=== PATIENT | male | born 1985 | race Caucasian/White ===

== ENCOUNTER 2018-06-08 23:11 | Emergency (ER) | payer OTHER ==
[~2018-06-08] VITALS: Ht 182.9 cm; Wt 104.3 kg
[~2018-06-08 23:11] MED LIST: ADDERALL 20 MG20 MG PO
[2018-06-08] MEDS ORDERED: LATUDA (23:26)
[2018-06-08] MEDS ORDERED: DEPAKOTE (23:26)
[2018-06-08 23:58] LABS: ABSOLUTE NEUTROPHILS 6.5 thou/uL (1.4-8.2); BASOPHILS 0.4 % (0.0-2.0); EOSINOPHILS 1.4 % (0.0-3.0); HEMATOCRIT 43.1 % (42.0-52.0); HEMOGLOBIN 14.8 gm/dL (14.0-18.0); LYMPHOCYTES 16.4 % (24.0-44.0); MCH 30.6 pg (26.0-34.0); MCHC 34.3 g/dL (28.0-37.0); MCV 89.2 fL (80.0-100.0); MONOCYTES 7.4 % (1.0-8.0); PLATELET COUNT 203 thou/uL (150-400); POLYS 74.4 % (36.0-66.0); RBC 4.83 mil/uL (4.50-6.00); RDW 13.5 % (10.5-14.5); WBC 8.8 thou/uL (4.0-11.0)
[2018-06-09 00:07] LABS: ANION GAP 11 mmol/L (7-16); BUN 9 mg/dL (7-18); CALCIUM 8.2 mg/dL (8.5-10.1); CHLORIDE 107 mmol/L (98-107); CO2 26 mmol/L (21-32); CREATININE 1.1 mg/dL (0.7-1.3); GLUCOSE 109 mg/dL (74-106); SODIUM 144 mmol/L (136-145)
[2018-06-09 00:12] LABS: ALBUMIN 3.5 g/dL (3.4-5.0); SALICYLATE < 2.8 mg/dL (2.8-20.0); SGOT 23 U/L (15-37); SGPT 32 U/L (30-65); TOTAL BILIRUBIN 0.3 mg/dL (<0.1-1.0); TOTAL PROTEIN 7.2 g/dL (6.4-8.2)
[2018-06-09 03:26] LABS: URINE CLARITY CLEAR; URINE COLOR YELLOW
[2018-06-09 03:27] LABS: URINE BILIRUBIN NEGATIVE (Negative); URINE BLOOD NEGATIVE (Negative); URINE GLUCOSE-RANDOM* NEGATIVE (Negative); URINE KETONES NEGATIVE (Negative); URINE LEUKOCYTES-REFLEX NEGATIVE (Negative); URINE NITRITE-REFLEX NEGATIVE (Negative); URINE PROTEIN (DIPSTICK) NEGATIVE (Negative); URINE UROBILINOGEN 0.2 E.U./dl (0.2-1.0)
[2018-06-09 03:32] LABS: AMP/METHAMP Negative (Negative); BARBITURATES Negative (Negative); BENZODIAZEPINES POSITIVE (Negative); COCAINE Negative (Negative); METHADONE Negative (Negative); OPIATES Negative (Negative); PCP Negative (Negative)
[2018-06-09 15:31] VITALS: BP 147/79
== END 2018-06-09 15:33 | disposition short-term general hospital (02) ==
LOC: ER 23:11
PROVIDERS: Emergency Medicine
DX: R45.851 Suicidal ideations (principal); F10.129 Alcohol abuse with intoxication, unspecified; F23 Brief psychotic disorder; F17.210 Nicotine dependence, cigarettes, uncomplicated; Y90.0 Blood alcohol level of less than 20 mg/100 ml

== ENCOUNTER 2020-07-30 04:32 | Emergency (ER) | payer OTHER ==
[~2020-07-30] VITALS: Ht 182.9 cm; Wt 95.3 kg
[~2020-07-30 04:32] MED LIST changes: +DEPAKOTE; +LATUDA
[2020-07-30] MEDS ORDERED: ABILIFY10 MG PO (04:50)
[2020-07-30] MEDS ORDERED: NEURONTIN 300M300 M2 PO (04:50)
[2020-07-30] MEDS ORDERED: WELLBUTRIN SR150 M1 PO (04:50)
[2020-07-30 04:56] LABS: ABSOLUTE NEUTROPHILS 4.3 thou/uL (1.4-8.2); BASOPHILS 0.8 % (0.0-2.0); EOSINOPHILS 2.9 % (0.0-3.0); HEMATOCRIT 39.6 % (42.0-52.0); HEMOGLOBIN 13.8 gm/dL (14.0-18.0); MCH 31.1 pg (26.0-34.0); MCHC 34.8 g/dL (28.0-37.0); MCV 89.2 fL (80.0-100.0); MONOCYTES 9.4 % (1.0-8.0); PLATELET COUNT 157 thou/uL (150-400); POLYS 63.9 % (36.0-66.0); RBC 4.44 mil/uL (4.50-6.00); RDW 12.8 % (10.5-14.5); WBC 6.7 thou/uL (4.0-11.0)
[2020-07-30 05:04] LABS: ANION GAP 11 mmol/L (7-16); BUN 17 mg/dL (7-18); CALCIUM 8.2 mg/dL (8.5-10.1); CHLORIDE 106 mmol/L (98-107); CO2 24 mmol/L (21-32); CREATININE 1.1 mg/dL (0.7-1.3); GLUCOSE 102 mg/dL (74-106); POTASSIUM 3.7 mmol/L (3.5-5.1); SODIUM 141 mmol/L (136-145)
[2020-07-30 05:05] LABS: URINE BILIRUBIN NEGATIVE (Negative); URINE BLOOD NEGATIVE (Negative); URINE CLARITY CLEAR; URINE COLOR YELLOW; URINE GLUCOSE-RANDOM* NEGATIVE (Negative); URINE KETONES NEGATIVE (Negative); URINE LEUKOCYTES-REFLEX NEGATIVE (Negative); URINE NITRITE-REFLEX NEGATIVE (Negative); URINE PROTEIN (DIPSTICK) NEGATIVE (Negative); URINE SPECIFIC GRAVITY <= 1.005 (1.005-1.035); URINE UROBILINOGEN 0.2 E.U./dl (0.2-1.0)
[2020-07-30 05:13] LABS: AMP/METHAMP Negative (Negative); BARBITURATES Negative (Negative); BENZODIAZEPINES Negative (Negative); COCAINE Negative (Negative); METHADONE Negative (Negative); OPIATES POSITIVE (Negative); PCP Negative (Negative)
[2020-07-30 05:15] LABS: ALBUMIN 3.4 g/dL (3.4-5.0); AMYLASE 59 U/L (25-115); DIRECT BILIRUBIN < 0.1 mg/dL (<0.1-0.2); LIPASE 172 U/L (73-393); SGOT 12 U/L (15-37); SGPT 26 U/L (16-63); TOTAL BILIRUBIN 0.3 mg/dL (0.2-1.0); TOTAL PROTEIN 6.6 g/dL (6.4-8.2); TROPONIN-I <0.06 ng/mL (<0.06)
[2020-07-30 05:52] VITALS: BP 124/85
--- NOTE | 2020-07-30 08:30 | EKG ---
[facility] [place] [id number] [place] [address] ELECTROCARDIOGRAM REPORT Name: TIMMY BEST Room #: DEP QUYEN Huffman#: [id number] Admission: 07/30/20 Attend Phys: Discharge: 07/30/20 Date of : 83 Report #: [id number] [facility] ED Test Date: 2020-07-30 Test Time: 04:38:52 Pat Name: TIMMY BEST Department: Room: Gender: M [employer] Set Up Operator: : 1985 Requested By: Garrett Ontiveros Order Number: [id number] MD: Sherwin Moreland Measurements Intervals [place] Rate: 86 P: 37 KS: 146 QRS: -18 QRSD: 104 T: 46 QT: 361 QTc: 432 Interpretive Statements Sinus rhythm RSR' in V1 or V2, probably normal variant Baseline wander in lead(s) III,aVF No previous ECG available for comparison Electronically Signed On 07-30-2020 8:30:09 CDT by Sherwin Moreland [email or web address] <ELECTRONICALLY SIGNED> By: Sherwin Moreland MD, [facility] 07/30/2030 0438 [id number] Sherwin Moreland MD, FACC /EPI
== END 2020-07-30 05:52 | disposition home or self-care (01) ==
LOC: ER 04:32
PROVIDERS: Emergency Medicine
DX: R07.89 Other chest pain (principal); F12.10 Cannabis abuse, uncomplicated; F11.10 Opioid abuse, uncomplicated; F31.9 Bipolar disorder, unspecified; F17.210 Nicotine dependence, cigarettes, uncomplicated; Z79.899 Other long term (current) drug therapy